=== PATIENT | female | born 1990 ===

== ENCOUNTER 2022-03-06 08:09 | Inpatient (IN) | payer OTHER ==
[2022-03-06] VITALS (16 sets, daily range): BP systolic 130–193; BP diastolic 74–106
[~2022-03-06] VITALS: Ht 157.5 cm; Wt 68.6 kg
[2022-03-06] MEDS ORDERED: OXYTOCIN 30 UNITS IN 0.9% NaCl 500ML IV BAG (J2590) As Ordered ONE ×2 (08:21→11:37)
[2022-03-06] MEDS ORDERED: LIDOCAINE 1% MDV 20ML VIAL As Ordered ONE (08:34)
[2022-03-06] MEDS ORDERED: METHYLERGONOVINE MALEATE 0.2 MG TAB PO PRN (09:00)
[2022-03-06] MEDS ORDERED: DOCUSATE SODIUM 100MG CAPSULE PO PRN (09:00)
[2022-03-06] MEDS ORDERED: DIBUCAINE 1% OINTMENT 30GM TOP PRN (09:00)
[2022-03-06] MEDS ORDERED: LIDOCAINE 1% MDV 20ML VIAL INFIL PRN (09:00)
[2022-03-06] MEDS ORDERED: MEASLES,MUMPS,RUBELLA VACCINE INJ (MMR-II) (90707) SC SCH (09:00)
[2022-03-06] MEDS ORDERED: RHOGAM 300 MCG (1500 IU) INJ (J2790) IM SCH (09:00)
[2022-03-06] MEDS ORDERED: OXYTOCIN DRIP 30 UNITS in IV 1 EA IV PRN (09:00)
[2022-03-06] MEDS ORDERED: MULTTAB20 PO (09:16)
[2022-03-06] MEDS ORDERED: FAMO20TA PO (09:16)
[2022-03-06] MEDS ORDERED: HOME MED LIST COMPLETE! XX SCH (09:20)
[2022-03-06] MEDS: PRENATAL VITAMINS CHEWABLE TABLET PO SCH (09:37)
[2022-03-06] MEDS: IBUPROFEN 800 MG TAB PO PRN (09:37)
[2022-03-06 10:37] LABS: HEMATOCRIT 43.8 % (36.0-47.0); HEMOGLOBIN 14.1 g/dl (12.0-15.5); MEAN CORPUSCULAR HEMOGLOBIN 22.6 pg (27.0-33.0); MEAN CORPUSCULAR HGB CONC 32.2 g/dl (32.0-36.5); MEAN CORPUSCULAR VOLUME 70.3 fl (80.0-96.0); PLATELET COUNT, AUTOMATED 225 10^3/uL (150-450); RED BLOOD COUNT 6.23 10^6/uL (4.00-5.40); WHITE BLOOD COUNT 13.8 10^3/uL (4.0-10.0)
[2022-03-06] MEDS ORDERED: OXYTOCIN INJ 10 UNITS/ML VIAL (J2590) IV STA (11:29)
[2022-03-06] MEDS ORDERED: CARBOPROST TROMETHAMINE 250 MCG/ML AMP IM ONE (11:30)
[2022-03-06] MEDS ORDERED: LR 1,000 ML IV ONE (11:30)
[2022-03-06] MEDS ORDERED: BUTORPHANOL 2 MG/ML INJ (J0595) IV ONE (11:30)
[2022-03-06] MEDS ORDERED: BUTORPHANOL 2 MG/ML INJ (J0595) As Ordered ONE (11:40)
[2022-03-06] MEDS ORDERED: LOMOTIL 2.5MG/0.025MG TABLET PO ONE (11:45)
[2022-03-06] MEDS ORDERED: TRANEXAMIC ACID INJection 1,000 MG in D5W 100 ML IV ONE (11:55)
[2022-03-06] MEDS ORDERED: PROMETHAZINE 25MG/ML 1ML VIAL IV ONE (12:00)
[2022-03-06] MEDS ORDERED: AMPICILLIN SOD/SULBACTAM SOD 3 GM in D5W MINI-BAG PLUS 100 ML IV ONE (12:00)
[2022-03-06 12:13] LABS: HEMATOCRIT 39.7 % (36.0-47.0); HEMOGLOBIN 12.8 g/dl (12.0-15.5); MEAN CORPUSCULAR HEMOGLOBIN 22.9 pg (27.0-33.0); MEAN CORPUSCULAR HGB CONC 32.2 g/dl (32.0-36.5); MEAN CORPUSCULAR VOLUME 70.9 fl (80.0-96.0); PLATELET COUNT, AUTOMATED 203 10^3/uL (150-450); WHITE BLOOD COUNT 13.8 10^3/uL (4.0-10.0)
[2022-03-06] MEDS ORDERED: OXYTOCIN DRIP 30 UNITS in IV 1 EA IV SCH (13:00)
[2022-03-06] MEDS: ACETAMINOPHEN TAB 650MG DOSE (2X325MG) PO PRN ×2 (15:12→19:35)
[2022-03-06] MEDS ORDERED: TRANEXAMIC ACID 100 MG/ML 10ML VIAL ONE (15:27)
[2022-03-07] MEDS: IBUPROFEN 800 MG TAB PO PRN (01:41)
[2022-03-07 02:13] VITALS: BP 143/90
[2022-03-07 05:56] VITALS: BP 142/89
[2022-03-07 06:48] LABS: HEMATOCRIT 30.2 % (36.0-47.0); MEAN CORPUSCULAR HEMOGLOBIN 22.6 pg (27.0-33.0); MEAN CORPUSCULAR HGB CONC 32.5 g/dl (32.0-36.5); MEAN CORPUSCULAR VOLUME 69.6 fl (80.0-96.0); PLATELET COUNT, AUTOMATED 190 10^3/uL (150-450); RED BLOOD COUNT 4.34 10^6/uL (4.00-5.40); WHITE BLOOD COUNT 10.4 10^3/uL (4.0-10.0)
[2022-03-07 07:06] LABS: HEMOGLOBIN 9.8 g/dl (12.0-15.5)
[2022-03-07] MEDS: PRENATAL VITAMINS CHEWABLE TABLET PO SCH (07:52)
[2022-03-07 10:00] VITALS: BP 143/88
[2022-03-07 18:00] VITALS: BP 170/94
[2022-03-07 18:15] VITALS: BP 143/89
[2022-03-07 22:00] VITALS: BP 157/74
[2022-03-08 02:00] VITALS: BP 142/74
[2022-03-08 06:00] VITALS: BP 148/75
[2022-03-08] MEDS: PRENATAL VITAMINS CHEWABLE TABLET PO SCH (08:13)
[2022-03-08 10:00] VITALS: BP 148/78
== END 2022-03-08 13:10 | disposition home or self-care (01) | DRG 807 ==
LOC: M LDI 08:09 → M OBS 14:32
PROVIDERS: ADMIT Registered Nurse; ATTEND Registered Nurse
PROC: 10E0XZZ Delivery of Products of Conception, External Approach (ICD-10-PCS; principal; 2022-03-06)
PROC: 0HQ9XZZ Repair Perineum Skin, External Approach (ICD-10-PCS; 2022-03-06)
DX: O14.14 Severe pre-eclampsia complicating childbirth (principal); Z37.0 Single live birth; Z3A.37 37 weeks gestation of pregnancy; O69.81X0 Labor and delivery complicated by cord around neck, without compression, not applicable or unspecified; O77.0 Labor and delivery complicated by meconium in amniotic fluid; O70.0 First degree perineal laceration during delivery; O72.0 Third-stage hemorrhage

== ENCOUNTER 2022-03-11 13:12 | Emergency (ER) | payer OTHER ==
[~2022-03-11] VITALS: Ht 157.5 cm; Wt 61.8 kg
[~2022-03-11 13:12] MED LIST: FAMO20TA PO; MULTTAB20 PO
[2022-03-11 13:13] VITALS: BP 171/105
[2022-03-11] MEDS ORDERED: COLA100C5 PO (13:35)
[2022-03-11] MEDS ORDERED: ACET325C5 PO (14:27)
== END 2022-03-11 14:03 | disposition admitted as inpatient to this hospital (09) ==
LOC: M ED 14:02
DX: Z53.21 Procedure and treatment not carried out due to patient leaving prior to being seen by health care provider (principal)

== ENCOUNTER 2022-03-11 14:07 | Outpatient (CLI) | payer OTHER ==
[2022-03-11] VITALS (33 sets, daily range): BP systolic 103–174; BP diastolic 57–107
[~2022-03-11] VITALS: Ht 157.5 cm; Wt 61.1 kg
[~2022-03-11 14:07] MED LIST changes: +COLA100C5 PO
[2022-03-11] MEDS ORDERED: ACET325C5 PO (14:27)
[2022-03-11] MEDS ORDERED: HOME MED LIST COMPLETE! XX SCH (14:30)
[2022-03-11] MEDS: LABETALOL 200 MG TAB PO SCH ×2 (15:24→21:36)
[2022-03-11 15:38] LABS: ALT/SGPT 86 U/L (12-78); BILIRUBIN,TOTAL 0.2 MG/DL (0.2-1.0); CREATININE FOR GFR 0.55 MG/DL (0.55-1.30); GLOMERULAR FILTRATION RATE > 60.0 (>60); LDH LACTATE DEHYDROGENASE 359 U/L (84-246); URIC ACID 5.4 MG/DL (2.6-6.0)
[2022-03-11] MEDS ORDERED: hydrALAZINE 20MG/ML 1ML VIAL (J0360 PER 20MG) IV ONE (15:50)
[2022-03-11] MEDS ORDERED: MAG Sulf (L&D) 4 GM/100 ML 4 GM in IV 1 EA IV ONE (15:50)
[2022-03-11] MEDS ORDERED: NIFEdipine 10 MG CAP PO STA (16:20)
[2022-03-11] MEDS: LR 1,000 ML IV SCH (16:57)
[2022-03-11] MEDS: MAG Sulf (OBGYN) 20GM/500ML 20,000 MG in IV 1 EA IV SCH (16:58)
[2022-03-11 17:13] LABS: HEMOGLOBIN 10.3 g/dl (12.0-15.5); MEAN CORPUSCULAR HEMOGLOBIN 22.2 pg (27.0-33.0); MEAN CORPUSCULAR HGB CONC 31.2 g/dl (32.0-36.5); MEAN CORPUSCULAR VOLUME 71.3 fl (80.0-96.0); PLATELET COUNT, AUTOMATED 487 10^3/uL (150-450); RED BLOOD COUNT 4.63 10^6/uL (4.00-5.40); WHITE BLOOD COUNT 7.8 10^3/uL (4.0-10.0)
[2022-03-12] VITALS (34 sets, daily range): BP systolic 100–150; BP diastolic 58–103
[2022-03-12] MEDS: MAG Sulf (OBGYN) 20GM/500ML 20,000 MG in IV 1 EA IV SCH ×2 (03:09→12:16)
[2022-03-12] MEDS: LR 1,000 ML IV SCH ×3 (04:30→22:40)
[2022-03-12 06:17] LABS: HEMATOCRIT 30.4 % (36.0-47.0); HEMOGLOBIN 9.6 g/dl (12.0-15.5); MEAN CORPUSCULAR HEMOGLOBIN 22.7 pg (27.0-33.0); MEAN CORPUSCULAR HGB CONC 31.6 g/dl (32.0-36.5); MEAN CORPUSCULAR VOLUME 71.9 fl (80.0-96.0); PLATELET COUNT, AUTOMATED 401 10^3/uL (150-450); RED BLOOD COUNT 4.23 10^6/uL (4.00-5.40); WHITE BLOOD COUNT 7.9 10^3/uL (4.0-10.0)
[2022-03-12 07:35] LABS: ALBUMIN 2.9 GM/DL (3.2-5.2); ALT/SGPT 70 U/L (12-78); BILIRUBIN,TOTAL 0.3 MG/DL (0.2-1.0); BLOOD UREA NITROGEN 7 MG/DL (7-18); CALCIUM LEVEL 6.9 MG/DL (8.5-10.1); CARBON DIOXIDE LEVEL 29 MEQ/L (21-32); CHLORIDE LEVEL 106 MEQ/L (98-107); CREATININE FOR GFR 0.54 MG/DL (0.55-1.30); GLOMERULAR FILTRATION RATE > 60.0 (>60); GLUCOSE, FASTING 93 MG/DL (70-100); POTASSIUM SERUM 3.9 MEQ/L (3.5-5.1); SODIUM LEVEL 140 MEQ/L (136-145); TOTAL PROTEIN 5.9 GM/DL (6.4-8.2)
[2022-03-12] MEDS: LABETALOL 200 MG TAB PO SCH ×2 (09:03→20:13)
[2022-03-12] MEDS ORDERED: SLF 3 ML SYR IV PRN (17:05)
[2022-03-12] MEDS: SLF 3 ML SYR IV SCH (22:40)
[2022-03-13 02:00] VITALS: BP 155/93
[2022-03-13 05:36] VITALS: BP 130/70
[2022-03-13] MEDS: SLF 3 ML SYR IV SCH (06:19)
[2022-03-13 08:06] LABS: HEMATOCRIT 33.1 % (36.0-47.0); HEMOGLOBIN 10.3 g/dl (12.0-15.5); MEAN CORPUSCULAR HEMOGLOBIN 22.6 pg (27.0-33.0); MEAN CORPUSCULAR HGB CONC 31.1 g/dl (32.0-36.5); MEAN CORPUSCULAR VOLUME 72.6 fl (80.0-96.0); PLATELET COUNT, AUTOMATED 507 10^3/uL (150-450); RED BLOOD COUNT 4.56 10^6/uL (4.00-5.40); WHITE BLOOD COUNT 8.7 10^3/uL (4.0-10.0)
[2022-03-13 08:19] VITALS: BP 141/99
[2022-03-13] MEDS: LABETALOL 200 MG TAB PO SCH (08:19)
[2022-03-13 08:20] VITALS: BP 141/99
[2022-03-13] MEDS ORDERED: LABE20TAB PO (08:43)
== END 2022-03-13 12:04 | disposition home or self-care (01) ==
LOC: M LDO 14:07 → M OBS 03-12 14:00 → M LDO 03-13 12:04
PROVIDERS: ATTEND Obstetrics & Gynecology
DX: O14.15 Severe pre-eclampsia, complicating the puerperium (principal); O98.53 Other viral diseases complicating the puerperium; U07.1 COVID-19
CPT/HCPCS: 36415; 80053; 82247; 82565; 83615; 84450; 84460; 84550; 85027; 87426; 96360; J3475

== ENCOUNTER → 2022-11-12 | Outpatient (CLI) | payer OTHER ==
[~2022-11-12] MED LIST changes: +ACET325C5 PO; +LABE20TAB PO
[2022-11-12 16:59] LABS: BASO # 0.1 10^3/uL (0.0-0.2); BASO % 0.8 % (0.0-1.0); EOS # 0.1 10^3/uL (0.0-0.5); EOS % 1.4 % (0.0-3.0); HEMATOCRIT 43.7 % (36.0-47.0); HEMOGLOBIN 13.3 g/dl (12.0-15.5); LYMPH # 3.5 10^3/uL (1.5-5.0); LYMPH % 38.5 % (24.0-44.0); MEAN CORPUSCULAR HEMOGLOBIN 21.2 pg (27.0-33.0); MEAN CORPUSCULAR HGB CONC 30.4 g/dl (32.0-36.5); MEAN CORPUSCULAR VOLUME 69.8 fl (80.0-96.0); MONO # 0.5 10^3/uL (0.0-0.8); MONO % 5.7 % (2.0-8.0); NEUTROPHILS # 4.9 10^3/uL (1.5-8.5); NEUTROPHILS % 53.4 % (36.0-66.0); PLATELET COUNT, AUTOMATED 407 10^3/uL (150-450); RED BLOOD COUNT 6.26 10^6/uL (4.00-5.40); WHITE BLOOD COUNT 9.2 10^3/uL (4.0-10.0)
[2022-11-12 18:00] LABS: FREE T4 1.12 NG/DL (0.89-1.76); THYROID STIMULATING HORMONE 0.913 uIU/ML (0.55-4.78)
[2022-11-12 18:06] LABS: IRON (FE) 76 UG/DL (50-170); PERCENT SATURATION 21.7 % (13.2-45.0); TOTAL IRON BINDING CAPACITY 351 UG/DL (250-425)
[2022-11-12 20:30] LABS: ALBUMIN 4.1 G/DL (3.2-5.2); ALKALINE PHOSPHATASE 103 U/L (46-116); ALT/SGPT 98 U/L (7.0-40); AST/SGOT 30 U/L (<34); BILIRUBIN,TOTAL 0.2 MG/DL (0.3-1.2); BLOOD UREA NITROGEN 9 MG/DL (9-23); CALCIUM LEVEL 9.3 MG/DL (8.5-10.1); CARBON DIOXIDE LEVEL 28 MMOL/L (20-31); CHLORIDE LEVEL 101 MMOL/L (98-107); GLOMERULAR FILTRATION RATE > 60.0 (>60); GLUCOSE, FASTING 93 MG/DL (60-100); POTASSIUM SERUM 3.8 MMOL/L (3.5-5.1); SODIUM LEVEL 139 MMOL/L (136-145); TOTAL PROTEIN 7.5 G/DL (5.7-8.2)
== END ==
LOC: M WUC 13:45
PROVIDERS: ATTEND Physician Assistant
DX: F41.9 Anxiety disorder, unspecified (principal)